=== PATIENT | male | born 1965 | race Caucasian/White ===

== ENCOUNTER 2024-06-29 04:30 | Observation (INO) | payer OTHER, SELFPAY ==
[2024-06-29] VITALS (8 sets, daily range): BP systolic 105–132; BP diastolic 66–82; PULSE 60–70; RESP 15–20; TEMP 36.6–36.9; O2SAT 67–97; BMI 36.5
--- NOTE | 2024-06-29 04:48 | PC.NURSE ---
Patient arrived to floor with EMS via stretcher from [facility] at 04:34.
--- NOTE | 2024-06-29 05:02 | EXP.HP ---
History of Present Illness *Admission Date: 06/29/24 *Reason for visit:: chest pain *History of present illness: This is a 58-year-old male who has a past medical history significant for prediabetes, hypertension, coronary disease, WPW, GERD, and sleep disorder who presents from outlying facility due to a chief complaint of chest pain. According to ER provider prior facility, patient presented to their facility due to substernal chest pain that radiated to his back. Patient was given sublingual nitroglycerin without any response; however, patient was placed on nitroglycerin drip and his chest pain was relieved. Portably, patient had a blood pressure of 192/110 after initiation of nitro drip patient's blood pressure improved to the 1 teens. Moreover, patient's 8 out of 10 substernal chest pain was also relieved. Patient's case was discussed with in-house timber framer helper who recommended transfer. As a result, patient was transitioned to [place] for further management. During my evaluation of patient, patient states that his symptomology started approximately 0 200 awakening him from sleep. Patient states his chest pain was rated 8 out of 10 had radiation to the jaw and left arm, was coupled with some diaphoresis, nausea, vomiting, and some mild shortness of breath. Since initiation of the nitroglycerin, patient's chest pain has been resolved. 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 Moreover, patient states he had a stress test greater than 10 years ago follow-up provocative workup since that timeframe. Patient also denies any prior angiogram. 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 This equates to at least 4 METS of tolerance. Patient did receive a full dose aspirin while at the prior facility. He also received weight-based Lovenox 1 mg/kg of body weight. Currently, he is denying any chest pain, lightheadedness, dizziness, PND, lower extremity swelling, orthopnea, shortness of breath, dyspnea, ripping sensation in chest, nausea, vomiting, or diarrhea. Pertinent values obtained at prior facility included a chest x-ray was negative for any acute cardiopulmonary process, his EKG revealed a normal sinus rhythm, QTc of 4 and 45, right axis shift, and a BUN of 20. PFSH PFSH Disclaimer: The information contained in this section may have been updated after the patient was seen, as this information can be updated by other users. Social History Smoking Status: Former smoker alcohol intake: current alcohol intake frequency: holidays/special occasions only current occupational status: other details: Self-employed Travel in the last 8 weeks: None Review of Systems Review of Systems Review of systems:: pertinent systems reviewed and negative unless documented below Constitutional Constitutional: Reports system reviewed and no additional complaints, except as documented Eyes Eyes: Reports system reviewed and no additional complaints, except as documented ENT Ears, Nose, Mouth, and Throat: Reports system reviewed and no additional complaints, except as documented *Cardiovascular Cardiovascular: Reports chest pain, Reports chest pain at rest, Reports dyspnea and Reports orthopnea *Respiratory Respiratory: Reports system reviewed and no additional complaints, except as documented and Reports dyspnea *Gastrointestinal Gastrointestinal: Reports system reviewed and no additional complaints, except as documented *Genitourinary Genitourinary: Reports system reviewed and no additional complaints, except as documented *Musculoskeletal Musculoskeletal: Reports system reviewed and no additional complaints, except as documented Integumentary/Breasts Skin/Breast: Reports system reviewed and no additional complaints, except as documented *Neurologic Neurologic: Reports system reviewed and no additional complaints, except as documented Psychiatric Psychiatric: Reports system reviewed and no additional complaints, except as documented Endocrine Endocrine: Reports system reviewed and no additional complaints, except as documented Hematologic/Lymphatic Hematologic/Lymphatic: Reports system reviewed and no additional complaints, except as documented Allergic/Immunologic Allergic/Immunologic: Reports system reviewed and no additional complaints, except as documented Meds Home Medications and Allergies New Prescriptions to Start Prescriptions: Allergies Allergy/AdvReac Type Severity Reaction Status Date / Time codeine Allergy Anaphylaxis Verified 06/29/24 05:19 Sulfa (Sulfonamide Allergy Anaphylaxis Verified 06/29/24 05:19 Antibiotics) Exam Constitutional Constitutional: no acute distress, obese and cooperative *Routine HEENT Exam Head: Present normocephalic and atraumatic Eye: Present EOMI, PERRL and normal accommodation ENT: Present mucous membranes moist and dentition normal *Routine Neck Exam Neck: Present supple and full ROM Routine Chest/Breast/Axilla Exam Comments: No tenderness noted doing palpation of the chest wall *Routine Respiratory Exam Respiratory: Present CTA bilaterally, normal respiratory effort, able to speak in complete sentences and symmetric chest movement *Routine Cardiovascular Exam Cardiovascular: Present RRR, Normal S1 and Normal S2 *Routine Abdominal Exam Abdominal: Present soft and normoactive bowel sounds *Routine Rectal Exam Rectal:: deferred *Routine Genitalia Exam Genitalia:: deferred *Routine Extremities Exam Extremities: Present pulses intact and normal capillary refill Routine Back/Spine/Pelvis Exam Back/Spine: Present full ROM *Routine Skin Exam Skin: Present intact, dry and warm *Routine Neurological Exam Neurological: Present alert, oriented X3, CN II-XII intact, moving all extremities, normal tone and normal speech Routine Psychiatric Exam Psychiatric: Present normal affect, normal thought process and cooperative H&P: Result Impressions This is a 58-year-old male with known coronary artery disease without any prior stenting has had cardiac ablation in the past who presents from outlying facility with unstable angina that responded to nitrates. Patient does voice have any provocative workup greater than 10 years ago but no ischemic workup since then. Reportedly, patient has a tolerance of at least 4 METS and is denying any dyspnea with exertion, chest pain with exertion, or shortness of breath Assessment and Plan *Assessment and plan (1) Unstable angina: Status: Acute Category: Medical Code(s): I20.0 - Unstable angina (2) Chest pain: Status: Acute Category: Medical Code(s): R07.9 - Chest pain, unspecified (3) CAD (coronary artery disease): Status: Acute Category: Medical Code(s): I25.10 - Atherosclerotic heart disease of [place] coronary artery without angina pectoris Plan Assessment: Unstable angina -Since patient's chest pain has improved with nitrates and is currently off of nitro drip, will start Nitropaste half inch twice daily we will hold for systolic blood pressure less than 110 -If patient's chest pain returns and it is refractory to sublingual and trans dermal, will restart nitro drip -Will obtain 2D echo -Troponins were normal at prior facility -Will obtain troponin -Patient did receive full-strength aspirin. Will continue 81 mg p.o. daily -Will give 40 mg of enoxaparin subcu daily Chest pain -2D echo when available -Cardiology consult -Will obtain D-dimer -Lipid profile in the a.m. -2D echo from prior facility is unremarkable Coronary artery disease -81 mg of aspirin daily Plan: Admit patient to the stepdown unit Supplemental oxygen to maintain oxygen saturation greater than 94% Saline lock Vital signs every 4 hours Cardiac diet CBC/BMP daily Obtain CMP, CBC, lipid panel, magnesium, and troponin now 5 mg of [place] p.o. every 4 hours PMR if pain 2 mg morphine IV push every 2 hours severe pain 4 mg Zofran IV push to 8 hours. Nausea vomiting/40 mg of Protonix p.o. daily Full code I will discuss this case with attending physician Dr. Garcia and I look forward to more input
[2024-06-29] MEDS: NITROGLYCERIN 1 GM OINTMENT 0.5 GM TD ×3 (05:33→20:49)
--- NOTE | 2024-06-29 08:19 | HMH.PHAINT1 ---
Pharmacy Intervention Comments: MEDICATION RECONCILIATION COMPLETE USING EXTERNAL PHARMACY FILL HISTORY.
[2024-06-29 08:23] LABS: Basophils % 0.5 % (0.1-2.0); Eosinophils # 0.2 K/mm3 (0.0-0.4); Hematocrit 40.6 % (42.0-52.0); Hemoglobin 13.8 g/dL (14.1-18.0); Lymphocytes # 1.9 K/mm3 (0.7-4.5); Lymphocytes % 25.3 % (10-50); Mean Corpuscular Hemoglobin 29.7 pg (27.0-31.2); Mean Corpuscular Volume 87.5 fl (80-94); Mean Platelet Volume 10.7 fl (7.4-10.4); Monocytes # 0.4 K/mm3 (0.1-1.0); Monocytes % 4.8 % (1.7-9.3); Neutrophils % 67.1 % (37.0-80.0); Platelet Count 261 K/mm3 (142-424); Red Blood Count 4.64 M/mm3 (4.60-6.20); Red Cell Distribution Width 12.4 % (11.5-17.5); White Blood Count 7.4 K/mm3 (4.8-10.8)
[2024-06-29 08:26] LABS: D-Dimer 0.55 ug/mL (0.0-0.5)
[2024-06-29 08:49] LABS: Alanine Aminotransferase 30 U/L (12-78); Albumin Level 3.9 g/dl (3.5-5.0); Albumin/Globulin Ratio 1.6 (1.1-1.8); Alkaline Phosphatase 66 U/L (38-126); Anion Gap 10.3 mEq/L (5-15); Aspartate Amino Transferase 28 U/L (17-59); Bilirubin,Total 0.2 mg/dl (0.2-1.3); Blood Urea Nitrogen 20 mg/dl (9-20); Calcium 9.1 mg/dl (8.4-10.2); Carbon Dioxide 23 mmol/L (22.0-30.0); Chloride 109 mmol/L (98-107); Chol/HDL Ratio 4.3 (1-3.5); Cholesterol 141 mg/dl (140-200); Creatinine Clearance Estimated 160 mL/min (50-200); Estimated Glomerular Filt Rate 99 ml/min (>60); GFR (African American) 119 ML/MIN (>60); Globulin 2.4 g/dL (1.3-3.2); Glucose 121 mg/dl (74-100); HDL Cholesterol 33 mg/dl (40-60); Magnesium 2.3 mg/dl (1.6-2.3); Potassium 4.3 mmoL/L (3.5-5.1); Sodium 138 mmol/L (136-145); Total Protein,Serum 6.3 g/dl (6.3-8.2); Triglycerides 104 mg/dl (30-150); VLDL Cholesterol 21 mg/dL (0-40)
[2024-06-29 09:00] LABS: Direct LDL Cholesterol 88.67 mg/dL (100-129)
[2024-06-29 09:12] LABS: Troponin I < 0.01 ng/ml (0.00-0.034)
[2024-06-29] MEDS: ENOXAPARIN 40MG/0.4ML SYRINGE 40 MG SUBCUT (09:20)
[2024-06-29] MEDS: ASPIRIN EC 81MG TABLET 81 MG PO (09:20)
[2024-06-29] MEDS: CITALOPRAM 20MG TABLET 20 MG PO (14:50)
[2024-06-29] MEDS: LORATADINE 10MG TABLET 10 MG PO (14:50)
--- NOTE | 2024-06-29 15:54 | ECG_ITS ---
APPROVED REPORT Exam: Resting ECG HR:58 bpm ECG Measurements Heart Rate 58 AXES LA 183 P 68 QRSd 128 QRS 20 QT 439 T 44 QTc 435 Conclusion SINUS BRADYCARDIA POSSIBLE RIGHT VENTRICULAR CONDUCTION DELAY [RSR (QR) IN V1/V2] BORDERLINE ECG UNCONFIRMED REPORT Electronically signed by : Roman Mejia MD 06/30/2024 10:51:15
--- NOTE | 2024-06-29 16:47 | PC.NURSE ---
pt is resting in bed. alert and oriented x4. eating and drinking well. no complaints of cp or soa. lung sounds clear. abdomen soft/non tender with active bowel sounds. pt stated his last bowel movement was this morning. vss. will continue to monitor.
[2024-06-29] MEDS: ACETAMINOPHEN 325MG TAB 650 MG PO (18:45)
--- NOTE | 2024-06-29 18:56 | EXP.EVENT.NO ---
Patient's chest pain has completely resolved. Currently very stable. Downgraded to MedSur status. Spoke with Dr. Combs, who will plan for LHC on Monday.
[2024-06-29] MEDS: TRAZODONE 50MG TABLET 50 MG PO (20:49)
[2024-06-29] MEDS: PANTOPRAZOLE 40MG TABLET 40 MG PO (20:49)
[2024-06-30] VITALS: BP 115/57; PULSE 54; PULSE 60; RESP 18; TEMP 36.4; O2SAT 95
[2024-06-30 04:00] VITALS: BP 111/57; PULSE 53; PULSE 65; RESP 18; TEMP 36.4; O2SAT 95; BMI 36.1
--- NOTE | 2024-06-30 06:55 | PC.NURSE ---
Pt is currently resting in bed. He is A&OX4 and has tolerated room air. He has denied any chest pain or soa. He has remained bradycardic to normal sinus on tele. No complaints at this time,call light within reach.
[2024-06-30 08:00] VITALS: BP 163/92; PULSE 70; PULSE 77; RESP 20; TEMP 36.5; O2SAT 94
[2024-06-30] MEDS: LORATADINE 10MG TABLET 10 MG PO (08:20)
[2024-06-30] MEDS: ENOXAPARIN 40MG/0.4ML SYRINGE 40 MG SUBCUT (08:20)
[2024-06-30] MEDS: ASPIRIN EC 81MG TABLET 81 MG PO (08:20)
[2024-06-30] MEDS: CITALOPRAM 20MG TABLET 20 MG PO (08:20)
[2024-06-30 09:10] LABS: Basophils % 0.8 % (0.1-2.0); Eosinophils # 0.2 K/mm3 (0.0-0.4); Eosinophils % 4.2 % (0.1-12.0); Hematocrit 42.2 % (42.0-52.0); Hemoglobin 14.3 g/dL (14.1-18.0); Lymphocytes # 1.3 K/mm3 (0.7-4.5); Lymphocytes % 25.4 % (10-50); Mean Corpuscular HGB Conc 33.9 g/dL (31.8-35.4); Mean Corpuscular Hemoglobin 29.4 pg (27.0-31.2); Mean Corpuscular Volume 86.8 fl (80-94); Mean Platelet Volume 10.1 fl (7.4-10.4); Monocytes # 0.2 K/mm3 (0.1-1.0); Monocytes % 4.4 % (1.7-9.3); Neutrophils # 3.4 K/mm3 (1.8-7.8); Platelet Count 234 K/mm3 (142-424); Red Blood Count 4.86 M/mm3 (4.60-6.20); Red Cell Distribution Width 12.3 % (11.5-17.5); White Blood Count 5.2 K/mm3 (4.8-10.8)
[2024-06-30 10:05] LABS: Chloride 107 mmol/L (98-107); Sodium 135 mmol/L (136-145)
[2024-06-30 10:09] LABS: Blood Urea Nitrogen 13 mg/dl (9-20); Calcium 9.1 mg/dl (8.4-10.2); Carbon Dioxide 22 mmol/L (22.0-30.0); Creatinine Clearance Estimated 159 mL/min (50-200); Estimated Glomerular Filt Rate 99 ml/min (>60); GFR (African American) 119 ML/MIN (>60); Glucose 158 mg/dl (74-100)
[2024-06-30 12:00] VITALS: BP 163/90; PULSE 70; PULSE 80; RESP 20; TEMP 36.6; O2SAT 97
--- NOTE | 2024-06-30 15:04 | PC.NURSE ---
PT IS RESTING IN BED VISITING WITH FAMILY. ALERT AND ORIENTED X4. NO COMPLAINTS OF CP OR SOA. PT REFUSED NITRO PASTE THIS MORNING DUE TO HEADACHE. LUNG SOUNDS CLEAR. ABDOMEN SOFT/NON TENDER WITH ACTIVE BOWEL SOUNDS. AMBULATES TO THE BATHROOM. NSR ON TELEMETRY. WILL CONTINUE TO MONITOR.
[2024-06-30 16:00] VITALS: BP 146/87; PULSE 69; PULSE 70; RESP 18; TEMP 36.6; O2SAT 97
--- NOTE | 2024-06-30 17:26 | EXP.PN ---
Subjective *Date: 06/30/24 *Time: 17:26 Interval history: Patient continues to feel very well, no chest pains. Tentatively planning for [facility] tomorrow, patient eager for it. N.p.o. at midnight. Exam Data for Last 24 hours Vital signs and Labs for Last 24 Hours: Temp Pulse Resp BP Pulse Ox O2 Del Method 97.8 F 70 20 163/90 H 97 Room Air 06/30/24 12:00 06/30/24 16:00 06/30/24 12:06/30/24 12:06/30/24 12:00 06/30/24 14:37 Laboratory Results - last 24 hr 06/30/24 08:30: WBC 5.2 D, RBC 4.86, Hgb 14.3, Hct 42.2, MCV 86.8, MCH 29.4, MCHC 33.9, RDW 12.3, Plt Count 234, MPV 10.1, Neut % (Auto) 65.0, Lymph % (Auto) 25.4, Petroleum % (Auto) 4.4, Eos % (Auto) 4.2, Baso % (Auto) 0.8, Neut # (Auto) 3.4, Lymph # (Auto) 1.3, Petroleum # (Auto) 0.2, Eos # (Auto) 0.2, Baso # (Auto) 0.0, Sodium 135 L, Potassium 4.0, Chloride 107, Carbon Dioxide 22, Anion Gap 10.0, BUN 13 D, Creatinine 0.80, Estimated Creat Clear 159, Estimated GFR 99, Est GFR ( Amer) 119, Glucose 158 H, Calcium 9.1 I & O for Last 24 hours: Intake & Output 06/27/24 06/28/24 06/29/24 06/30/24 23:59 23:59 23:59 23:59 Intake Total 1180 / 1330 750 / 750 Output Total 0 / 0 0 / 0 Balance 1180 / 1330 750 / 750 Weight 115.485 kg 114.577 kg Constitutional Constitutional: no acute distress *Routine HEENT Exam Head: Present normocephalic Eye: Present EOMI and PERRL ENT: Present mucous membranes moist *Routine Neck Exam Neck: Present supple; Absent lymphadenopathy *Routine Respiratory Exam Respiratory: Present CTA bilaterally *Routine Cardiovascular Exam Cardiovascular: Present RRR *Routine Abdominal Exam Abdominal: Present soft and normoactive bowel sounds; Absent tenderness *Routine Extremities Exam Extremities: Absent cyanosis, clubbing or edema *Routine Skin Exam Skin: Present warm; Absent rash *Routine Neurological Exam Neurological: Present alert and oriented X3 Assessment and Plan *Assessment and plan (1) Unstable angina: Status: Acute Category: Medical Code(s): I20.0 - Unstable angina (2) Chest pain: Status: Acute Category: Medical Code(s): R07.9 - Chest pain, unspecified (3) CAD (coronary artery disease): Status: Acute Category: Medical Code(s): I25.10 - Atherosclerotic heart disease of [place] coronary artery without angina pectoris Plan Larry Daniel is a 58-year-old male who was transferred from [facility] for unstable angina. #Unstable angina ? Chest pain improved with nitro drip at [facility]. EKG, troponins were unremarkable there and here. ? Weaned off Nitropaste yesterday, currently stable. No chest pains. ? Patient states he has had a LHC many years ago without a stent. He would really like to find out why he is having chest pains. ? Discussed case with Dr. Combs who recommended LHC on Monday. ? Follow-up ECHO. ? Follow-up A1c, lipid panel, TSH. ? Cardiology consulted, pending further recommendations. ? Aspirin, statin. N.p.o. at midnight. Full code DVT prophylaxis: Lovenox 40 mg
[2024-06-30 20:00] VITALS: BP 101/70; PULSE 75; PULSE 85; RESP 18; TEMP 37.2; O2SAT 98
[2024-06-30] MEDS: PANTOPRAZOLE 40MG TABLET 40 MG PO (20:16)
[2024-06-30] MEDS: TRAZODONE 50MG TABLET 50 MG PO (20:16)
[2024-07-01] VITALS (9 sets, daily range): BP systolic 101–158; BP diastolic 50–91; PULSE 64–91; RESP 16–20; TEMP 36.4–37; O2SAT 90–99
--- NOTE | 2024-07-01 05:51 | XR_ITS ---
PROCEDURE INFORMATION: Exam: XR Chest Exam date and time: 07/01/2024 6:07 AM Age: 58 years old Clinical indication: Other: Chf, copd TECHNIQUE: Imaging protocol: Radiologic exam of the chest. Views: 1 view. COMPARISON: No relevant prior studies available. FINDINGS: Lungs: Unremarkable. No consolidation. Pleural spaces: Unremarkable. No pleural effusion. No pneumothorax. Heart/Mediastinum: Unremarkable. No cardiomegaly. Bones/joints: Unremarkable. IMPRESSION: No acute findings.
[2024-07-01 08:01] LABS: Chol/HDL Ratio 4.9 (1-3.5); Cholesterol 153 mg/dl (140-200); HDL Cholesterol 31 mg/dl (40-60); Triglycerides 124 mg/dl (30-150); VLDL Cholesterol 25 mg/dL (0-40)
[2024-07-01] MEDS: CITALOPRAM 20MG TABLET 20 MG PO (08:23)
[2024-07-01] MEDS: METOPROLOL SUCCINATE XL 25MG TABLET 25 MG PO (08:24)
[2024-07-01] MEDS: ENOXAPARIN 40MG/0.4ML SYRINGE 40 MG SUBCUT (08:24)
[2024-07-01] MEDS: LORATADINE 10MG TABLET 10 MG PO (08:24)
[2024-07-01] MEDS: ASPIRIN EC 81MG TABLET 81 MG PO (08:24)
[2024-07-01 08:31] LABS: Thyroid Stimulating Hormone 0.81 uIU/mL (0.465-4.68)
--- NOTE | 2024-07-01 10:09 | IR_ITS ---
APPROVED REPORT Patient Location: Inpatient Video System Repairer: Asher Smith RT (R) PROCEDURES 1. Left heart catheterization 2. Selective coronary arteriography 3. Left ventriculography INDICATION 1. Unstable angina, 2. Abnormal EKG SCAI INDICATION Patient is 58-year-old white male who presented with increasing pressure and tightness in the chest. Typical angina. Progressive. Risk factors for coronary disease. Abnormal EKG. Secondary to this referred directly for left heart catheterization Informed consent was obtained prior to the procedure. COMPLICATIONS NONE Estimated Blood Loss: LESS THAN 10 ML TECHNIQUE One percent lidocaine was used to anesthetize the right radial artery. Radial access was obtained. Gómez's test appropriate for the procedure. Catheter used for the procedure was a Papa catheter. I also used a JL 3.5 catheter. After access was obtained via the Salinger technique radial sheath was placed without difficulty. Intra-arterial cocktail was given to prevent arterial vasospasm. ANGIOGRAPHIC RESULTS The left main artery Angiographically normal The left anterior descending artery Angiographically normal The circumflex artery Moderate in size and angiographically normal The right coronary artery Large and dominant and angiographically normal The JENSEN ventriculogram reveals Normal left ventricular systolic function with an ejection fraction of 60% The left ventricular end-diastolic pressure 14 After procedure radial sheath was removed and radial band placed without difficulty IMPRESSION 1. Normal coronary arteries 2. Normal left ventricular systolic function 3. Normal left ventricular end-diastolic pressure 4. Successful placement of a radial band on the right radial artery PLAN 1. Patient will continue with medical therapy. Look for noncardiac causes of chest pain. Coronaries were normal. Left ventricular systolic function is normal. Follow-up in cardiology clinic in 1 to 2 weeks for further evaluation and treatment Electronically signed by : Edy Short MD 07/01/2024 15:46:11
[2024-07-01 10:38] LABS: Chloride 105 mmol/L (98-107)
[2024-07-01 10:39] LABS: Potassium 4.2 mmoL/L (3.5-5.1); Sodium 138 mmol/L (136-145)
[2024-07-01 10:42] LABS: Anion Gap 13.2 mEq/L (5-15); Blood Urea Nitrogen 16 mg/dl (9-20); Calcium 9.1 mg/dl (8.4-10.2); Carbon Dioxide 24 mmol/L (22.0-30.0); Creatinine Clearance Estimated 159 mL/min (50-200); Estimated Glomerular Filt Rate 99 ml/min (>60); GFR (African American) 119 ML/MIN (>60); Glucose 111 mg/dl (74-100)
[2024-07-01 10:55] LABS: Basophils % 0.6 % (0.1-2.0); Eosinophils # 0.2 K/mm3 (0.0-0.4); Eosinophils % 3.1 % (0.1-12.0); Hematocrit 43.9 % (42.0-52.0); Hemoglobin 14.9 g/dL (14.1-18.0); Lymphocytes # 1.6 K/mm3 (0.7-4.5); Lymphocytes % 25.6 % (10-50); Mean Corpuscular HGB Conc 33.9 g/dL (31.8-35.4); Mean Corpuscular Volume 85.4 fl (80-94); Mean Platelet Volume 10.5 fl (7.4-10.4); Monocytes # 0.4 K/mm3 (0.1-1.0); Monocytes % 6.1 % (1.7-9.3); Neutrophils # 4.1 K/mm3 (1.8-7.8); Neutrophils % 64.4 % (37.0-80.0); Platelet Count 249 K/mm3 (142-424); Red Blood Count 5.14 M/mm3 (4.60-6.20); Red Cell Distribution Width 12.2 % (11.5-17.5); White Blood Count 6.4 K/mm3 (4.8-10.8)
--- NOTE | 2024-07-01 10:58 | P.CONCA_ITS ---
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 Admitted for evaluation of chest pain which is why we are consulted. Patient presented to [facility] emergency department on Monday night due to 8/10 epigastric and substernal chest pressure with radiation to his jaw and left arm associated with diaphoresis nausea vomiting and shortness of breath. Symptoms were relieved with nitroglycerin drip. Dr. Combs was called and advised patient be transferred to this facility for intervention. Patient states today that he had another episode very similar to this around [place] time which required him to cancel his [place] plans. States he has been overall feeling very fatigued since . 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 Saw PCP which is when he was diagnosed with high blood pressure, prediabetes, hypercholesterolemia. He was working on diet and lifestyle changes. Workup reveals normal serial troponin, D-dimer 0.55, EKG shows sinus bradycardia 58 bpm without acute ischemia or ectopy. There is no chest x-ray, echo or CTA on file. [facility] Disclaimer: The information contained in this section may have been updated after the patient was seen, as this information can be updated by other users. Medical History (Updated 07/01/24 @ 11:03 by YOUSIF Vargas) Sleep apnea GERD (gastroesophageal reflux disease) Pre-diabetes WPW (Mnmmv-Lpzpvfeul-Okonr syndrome) Surgical History H/O knee surgery History of cardiac radiofrequency ablation Social History Smoking Status: Former smoker alcohol intake: never current occupational status: employed Travel in the last 8 weeks: None Have you lived/traveled outside US in past 30 days?: No Contact w/someone who lives/traveled outside US past 30 days?: No Exposure to someone with infectious disease in past 14 days?: No Do you have a fever (greater than 100.4 F or 38 C)?: No Have you tested positive for COVID-19: No Exposed to someone with COVID-19 in past 14 days?: No Do you have a sore throat?: No Do you have a cough?: No Do you have any weakness?: No Are you experiencing any nausea/vomitting?: No Do you have any diarrhea?: No Are you experiencing any unusual bleeding?: No Do you have any muscle aches/pain?: No Do you have any abdominal pain?: No Are you experiencing loss of taste or smell?: No Review of Systems Constitutional Constitutional: Reports fatigue and Reports weakness Eyes Eyes: Denies loss of vision ENT Ears, Nose, Mouth, and Throat: Denies hearing loss *Cardiovascular Cardiovascular: Reports chest pain, Reports dyspnea and Reports dyspnea on exertion *Respiratory Respiratory: Denies cough, Reports dyspnea and Reports dyspnea on exertion *Gastrointestinal Gastrointestinal: Denies change in stool character, Reports nausea and Reports vomiting *Genitourinary Genitourinary: Denies difficulty urinating *Musculoskeletal Musculoskeletal: Denies muscle weakness Integumentary/Breasts Skin/Breast: Denies changing lesions *Neurologic Neurologic: Reports system reviewed and no additional complaints, except as documented, Denies loss of vision and Reports weakness Endocrine Endocrine: Reports fatigue Exam Data for Last 24 hours Vital signs and Labs for Last 24 Hours: Temp Pulse Resp BP Pulse Ox O2 Del Method 98.1 F 70 18 138/88 98 Room Air 07/01/24 07:54 07/01/24 08:00 07/01/24 07:54 07/01/24 07:54 07/01/24 07:54 07/01/24 09:00 Laboratory Results - last 24 hr 07/01/24 07:03: WBC 6.4, RBC 5.14, Hgb 14.9, Hct 43.9, MCV 85.4, MCH 29.0, MCHC 33.9, RDW 12.2, Plt Count 249, MPV 10.5 H, Neut % (Auto) 64.4, Lymph % (Auto) 25.6, [place] % (Auto) 6.1, Eos % (Auto) 3.1, Baso % (Auto) 0.6, Neut # (Auto) 4.1, Lymph # (Auto) 1.6, [place] # (Auto) 0.4, Eos # (Auto) 0.2, Baso # (Auto) 0.0, Sodium 138, Potassium 4.2, Chloride 105, Carbon Dioxide 24, Anion Gap 13.2, BUN 16, Creatinine 0.80, Estimated Creat Clear 159, Estimated GFR 99, Est GFR ( Amer) 119, Glucose 111 H D, Hemoglobin A1c 6.0, Calcium 9.1, Triglycerides 124, Cholesterol 153, LDL Cholesterol Direct 94.10 L, VLDL Cholesterol 25, HDL Cholesterol 31 L, Cholesterol/HDL Ratio 4.9 H, TSH 0.81 I & O for Last 24 hours: Intake & Output 06/28/24 06/29/24 06/30/24 07/01/24 23:59 23:59 23:59 23:59 Intake Total 1180 / 1330 750 / 950 200 / 200 Output Total 0 / 0 0 / 0 0 / 0 Balance 1180 / 1330 750 / 950 200 / 200 Weight 254 lb 9.6 oz 252 lb 9.6 oz Constitutional Constitutional: no acute distress and cooperative *Routine HEENT Exam Eye: Present PERRL *Routine Respiratory Exam Respiratory: Present CTA bilaterally; Absent accessory muscle use, wheezes or crackles *Routine Cardiovascular Exam Cardiovascular: Present RRR, Normal S1 and Normal S2; Absent murmur, gallop or rubs *Routine Abdominal Exam Abdominal: Present soft; Absent tenderness *Routine Extremities Exam Extremities: Present pulses intact; Absent cyanosis or edema *Routine Skin Exam Skin: Present intact; Absent erythema or wounds *Routine Neurological Exam Neurological: Present alert and oriented X3 Routine Psychiatric Exam Psychiatric: Present cooperative Meds Home Medications and Allergies Home Medications ?Medication ?Instructions ?Recorded ?Confirmed ?Type citalopram 20 mg tablet 20 mg PO DAILY 06/29/24 06/29/24 History loratadine 10 mg tablet (Claritin) 10 mg PO DAILY 06/29/24 06/29/24 History New Prescriptions to Start Prescriptions: Allergies Allergy/AdvReac Type Severity Reaction Status Date / Time codeine Allergy Anaphylaxis Verified 06/29/24 05:19 Sulfa (Sulfonamide Allergy Anaphylaxis Verified 06/29/24 05:19 Antibiotics) Assessment and Plan *Assessment and plan (1) Unstable angina: Status: Acute Category: Medical Code(s): I20.0 - Unstable angina (2) Hypertension: Status: Acute Category: Medical Code(s): I10 - Essential (primary) hypertension (3) WPW (Rjony-Jrvmqzeya-Bujtd syndrome): Status: Acute Category: Medical Code(s): I45.6 - Pre-excitation syndrome (4) Pre-diabetes: Status: Acute Category: Medical Code(s): R73.03 - Prediabetes (5) GERD (gastroesophageal reflux disease): Status: Acute Category: Medical Code(s): K21.9 - Gastro-esophageal reflux disease without esophagitis Plan Unstable Angina - nml serial trop and EKG but worsening symptoms and CV risk factors - pt agreeable to [facility] this afternoon - risk and benefits discussed - Cont ASA and Lovenox, add statin and Toprol - check CXR and 2D ECHO, consider CTA if other test yield no answers Htn - recently dx - 192/110 on arrival - 130/80s now on Toprol 25 Pre-Dm - lifestyle management - consider OP GLP-1
[2024-07-01] MEDS: HEPARIN 1,000 UNITS/ML 10ML VIAL (CATH LAB) 10000 UNIT IV (15:10)
[2024-07-01] MEDS: NITROGLYCERIN 800MCG/8ML SYR (CATH LAB) 800 MCG IA (15:10)
[2024-07-01] MEDS: LIDOCAINE 1% 10ML MDV 20 ML IJ (15:10)
[2024-07-01] MEDS: diphenhydrAMINE 50MG/ML VIAL 50 MG IV (15:10)
[2024-07-01] MEDS: VERAPAMIL 2.5MG/ML 2ML VIAL 2.5 MG IV (15:10)
[2024-07-01] MEDS: 0.9 % SODIUM CHLORIDE 500 ML 25 ML IV (15:11)
[2024-07-01] MEDS: MIDAZOLAM HCL 1MG/ML 5ML VIAL 1 MG IV (15:11)
[2024-07-01] MEDS: FENTANYL 100MCG/2ML VIAL 50 MCG IV (15:11)
[2024-07-01] MEDS: HEPARIN 1,000 UNITS/500ML NS (CATH LAB) 3000 UNIT IV (15:11)
[2024-07-01] MEDS: IOPAMIDOL-370 (76%);100ML BOTTLE 70 ML IV (16:19)
--- NOTE | 2024-07-01 17:28 | P.DS_ITS ---
General Admission date:: 06/29/24 HPI HPI HPI: This is a 58-year-old male who has a past medical history significant for prediabetes, hypertension, coronary disease, WPW, GERD, and sleep disorder who presents from outlying facility due to a chief complaint of chest pain. According to ER provider prior facility, patient presented to their facility due to substernal chest pain that radiated to his back. Patient was given cm blingual nitroglycerin without any response; however, patient was placed on nitroglycerin drip and his chest pain was relieved. Portably, patient had a blood pressure of 192/110 after initiation of nitro drip patient's blood pressure improved to the 1 teens. Moreover, patient's 8 out of 10 substernal chest pain was also relieved. Patient's case was discussed with in-house lawyer real estate who recommended transfer. As a result, patient was transitioned to [facility] for further management. During my evaluation of patient, patient states that his symptomology started approximately 0 200 awakening him from sleep. Patient states his chest pain was rated 8 out of 10 had radiation to the jaw and left arm, was coupled with some diaphoresis, nausea, vomiting, and some mild shortness of breath. Since initiation of the nitroglycerin, patient's chest pain has been resolved. 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 Moreover, patient states he had a stress test greater than 10 years ago follow-up provocative workup since that timeframe. Patient also denies any prior angiogram. 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 This equates to at least 4 METS of tolerance. Patient did receive a full dose aspirin while at the prior facility. He also received weight-based Lovenox 1 mg/kg of body weight. Currently, he is denying any chest pain, lightheadedness, dizziness, PND, lower extremity swelling, orthopnea, shortness of breath, dyspnea, ripping sensation in chest, nausea, vomiting, or diarrhea. Pertinent values obtained at prior facility included a chest x-ray was negative for any acute cardiopulmonary process, his EKG revealed a normal sinus rhythm, QTc of 4 and 45, right axis shift, and a BUN of 20. Hospital Course Hospital Course Hospital Course: Larry Daniel is a 58-year-old male who was transferred from [facility] for unstable angina. #Chest pain #Suspected GERD ? Chest pain improved with nitro drip at [facility]. EKG, troponins were unremarkable there and here. ? Weaned off Nitropaste yesterday, currently stable. No chest pains. ? Patient states he has had a C many years ago without a stent. He would really like to find out why he is having chest pains. ? Cardiology consulted, s/p C with normal coronary ateries. - Will order outpatient ECHO. ? A1c, lipid panel, TSH unremarkable. - Chest pain may represent GERD, as he was chest pain free during admission after starting Protonix. Discharged with protonix. Will follow-up with cardiology within 1 week. Total time spent on discharge: 32 minutes on chart review, counseling, documentation, and direct care with patient. Exam Data for Last 24 hours Vital signs and Labs for Last 24 Hours: Temp Pulse Resp BP Pulse Ox O2 Del Method 98.6 F 83 16 108/56 L 92 L Room Air 07/01/24 12:00 07/01/24 16:00 07/01/24 16:00 07/01/24 16:00 07/01/24 16:00 07/01/24 16:00 Laboratory Results - last 24 hr 07/01/24 07:03: WBC 6.4, RBC 5.14, Hgb 14.9, Hct 43.9, MCV 85.4, MCH 29.0, MCHC 33.9, RDW 12.2, Plt Count 249, MPV 10.5 H, Neut % (Auto) 64.4, Lymph % (Auto) 25.6, [place] % (Auto) 6.1, Eos % (Auto) 3.1, Baso % (Auto) 0.6, Neut # (Auto) 4.1, Lymph # (Auto) 1.6, [place] # (Auto) 0.4, Eos # (Auto) 0.2, Baso # (Auto) 0.0, Sodium 138, Potassium 4.2, Chloride 105, Carbon Dioxide 24, Anion Gap 13.2, BUN 16, Creatinine 0.80, Estimated Creat Clear 159, Estimated GFR 99, Est GFR ( Amer) 119, Glucose 111 H D, Hemoglobin A1c 6.0, Calcium 9.1, Triglycerides 124, Cholesterol 153, LDL Cholesterol Direct 94.10 L, VLDL Cholesterol 25, HDL Cholesterol 31 L, Cholesterol/HDL Ratio 4.9 H, TSH 0.81 I & O for Last 24 hours: Intake & Output 06/28/24 06/29/24 06/30/24 07/01/24 23:59 23:59 23:59 23:59 Intake Total 1180 / 1330 750 / 950 200 / 200 Output Total 0 / 0 0 / 0 0 / 0 Balance 1180 / 1330 750 / 950 200 / 200 Weight 115.485 kg 114.577 kg Constitutional Constitutional: no acute distress and obese *Routine HEENT Exam Head: Present normocephalic Eye: Present EOMI and PERRL ENT: Present mucous membranes moist *Routine Neck Exam Neck: Present supple; Absent lymphadenopathy *Routine Respiratory Exam Respiratory: Present CTA bilaterally *Routine Cardiovascular Exam Cardiovascular: Present RRR *Routine Abdominal Exam Abdominal: Present soft and normoactive bowel sounds; Absent tenderness *Routine Extremities Exam Extremities: Absent cyanosis, clubbing or edema *Routine Skin Exam Skin: Present warm; Absent rash *Routine Neurological Exam Neurological: Present alert and oriented X3 Results Data Completed and Pending Labs on day of discharge: Labs from last 24 hours 07/01/24 07:03 WBC 6.4 RBC 5.14 Hgb 14.9 Hct 43.9 MCV 85.4 MCH 29.0 MCHC 33.9 RDW 12.2 Plt Count 249 MPV 10.5 H Neut % (Auto) 64.4 Lymph % (Auto) 25.6 [place] % (Auto) 6.1 Eos % (Auto) 3.1 Baso % (Auto) 0.6 Neut # (Auto) 4.1 Lymph # (Auto) 1.6 [place] # (Auto) 0.4 Eos # (Auto) 0.2 Baso # (Auto) 0.0 Sodium 138 Potassium 4.2 Chloride 105 Carbon Dioxide 24 Anion Gap 13.2 BUN 16 Creatinine 0.80 Estimated Creat Clear 159 Estimated GFR 99 Est GFR ( Amer) 119 Glucose 111 H D Hemoglobin A1c 6.0 Calcium 9.1 Triglycerides 124 Cholesterol 153 LDL Cholesterol Direct 94.10 L VLDL Cholesterol 25 HDL Cholesterol 31 L Cholesterol/HDL Ratio 4.9 H TSH 0.81 DS: Diagnosis Discharge Diagnosis (1) Unstable angina: Status: Acute Code(s): I20.0 - Unstable angina (2) Hypertension: Status: Acute Code(s): I10 - Essential (primary) hypertension (3) WPW (Bdwgz-Wllzzemzl-Mrcwz syndrome): Status: Acute Code(s): I45.6 - Pre-excitation syndrome (4) Pre-diabetes: Status: Acute Code(s): R73.03 - Prediabetes (5) GERD (gastroesophageal reflux disease): Status: Acute Code(s): K21.9 - Gastro-esophageal reflux disease without esophagitis Meds Home Medications and Allergies Home Medications ?Medication ?Instructions ?Recorded ?Confirmed ?Type citalopram 20 mg tablet 20 mg PO DAILY 06/29/24 07/08/24 History loratadine 10 mg tablet (Claritin) 10 mg PO DAILY 06/29/24 07/08/24 History pantoprazole 40 mg tablet,delayed 40 mg PO HS 30 days #30 tabs 07/01/24 07/08/24 Rx release trazodone 50 mg tablet 50 mg PO HS PRN sleep 30 days #30 07/01/24 07/08/24 Rx tabs metoprolol succinate 50 mg 50 mg PO DAILY #90 tabs 07/08/24 07/08/24 Rx tablet,extended release 24 hr New Prescriptions to Start Prescriptions: charletteazole Tyler Garcia trazodone Tyler Garcia Allergies Allergy/AdvReac Type Severity Reaction Status Date / Time codeine Allergy Anaphylaxis Verified 07/08/24 11:21 Sulfa (Sulfonamide Allergy Anaphylaxis Verified 07/08/24 11:21 Antibiotics) Discharge Plan Disposition Patient Disposition: Home, Self-Care Condition: Fair Follow up Plan Follow up with: Aidan Sampson PA [Physician Housekeeping Attendant] - 07/08/24 11:30 am Pool Raoms [Primary Care Provider] - 07/08/24 9:30 am Prescriptions/Medication Reconciliation: New trazodone 50 mg Tablet 50 mg PO HS PRN (Reason: sleep) 30 Days Qty: 30 0RF pantoprazole 40 mg Tablet,Delayed Release (Dr/Ec) 40 mg PO HS 30 Days Qty: 30 0RF Continued loratadine [Claritin] 10 mg Tablet 10 mg PO DAILY citalopram 20 mg tablet 20 mg PO DAILY No Action metoprolol succinate 50 mg tablet extended release 24 hr 50 mg PO DAILY Qty: 90 3RF Problem Reconciliation Problems Reviewed?: Yes Patient Discharge Instructions Patient Instructions: DI for Chest Pain Print Language: Lebanese Providers Primary Care Provider: Pool Ramos Admit Provider: Tyler Garcia Attending Provider: Tyler Garcia
--- NOTE | 2024-07-01 18:59 | PC.NURSE ---
aox4, radial band still in place at time of writing. not requiring o2 support. tolerated diet well.
--- NOTE | 2024-07-01 20:24 | PC.NURSE ---
Pt discharged off floor, Pt took him home @20:21
--- NOTE | 2024-07-02 10:03 | SW/DCPLANNER ---
Spoke with patient on the phone. Patient stated that he is doing very well. Patient stated that the nurse went over his upcoming appointments and that he is aware of them. Patient stated that he hasnt gotten out or recieved a text that his medicine is ready. Patient stated that he is fixing to go and pick them up. Patient stated that his care here at [facility] was exceptional and it was his first visit and he will be coming back. Patient stated that he has no concern or questions at this time. Yael Meneses
== END 2024-07-01 20:21 | disposition home or self-care (01) ==
PROVIDERS: Internal Medicine Cardiovascular Disease; Nurse Practitioner Family; Admitting Provider Student in an Organized Health Care Education/Training Program; PCP Family Medicine; Visit Provider Student in an Organized Health Care Education/Training Program
DX: I25.110 Atherosclerotic heart disease of native coronary artery with unstable angina pectoris (principal); I45.6 Pre-excitation syndrome; R73.03 Prediabetes; K21.9 Gastro-esophageal reflux disease without esophagitis; I10 Essential (primary) hypertension; E66.9 Obesity, unspecified; Z68.36 Body mass index [BMI] 36.0-36.9, adult; Z71.3 Dietary counseling and surveillance; Z87.891 Personal history of nicotine dependence; Z79.899 Other long term (current) drug therapy; Z79.82 Long term (current) use of aspirin
CPT/HCPCS: 93452; 36415; 71045; 80048; 80053; 80061; 83036; 83735; 84443; 84484; 85025; 85378; 93005; 99152; C1725; C1769; G0378; J1200; J1644; J1650; J2250; J3010; Q9967

== ENCOUNTER 2024-07-05 09:05 | Outpatient (CLI) | payer OTHER, SELFPAY ==
--- NOTE | 2024-07-05 09:12 | CA_ITS ---
APPROVED REPORT EXAM: Comprehensive 2D, Doppler, and color-flow Echocardiogram Rubber Engraver: Sabiha Toribio CRT Ht: 5 ft 10 in Wt: 254lbs BSA: 2.31 BP: 163/90 mmHg Indications: Chest Pain, Shortness of Breath, Diabetes, Palpitations, CAD, Hyperlipidemia, Hypertension/HDD, cath 06/29/24 normal coronaries, CABG, WPW, Ablation x2 2D Dimensions LA Volume 53.00 mL LA Volume Index 22.40 mL/m2 (M/F) 16-34 M-Mode Dimensions RVDd 3.06 cm (0.9-2.6) LA Diam 3.74 cm (1.9-4.0) LVDd 5.60 cm (3.5-5.7) LVDs 3.90 cm (3.5-5.7) IVSd 1.99 cm (0.6-1.1) PWd 0.87 cm (0.6-1.1) EF (Teich) 57.10% FS 30.40% EDV (Teich) 153.70 mL ESV (Teich) 65.90 mL LV Diastology E Decel Time 207 (160-240 msec) E/A Ratio 1.26 MED A' 10.20 cm/s LAT A' 7.90 cm/s Aortic Valve AI PHT 585.00 ms AO Peak GR. 5.40 mmHg Mitral Valve MV E Max Harman. 104.0 (40-130 cm/s) MV A Velocity 82.0 (40-130 cm/s) E/A Ratio 1.26 MV PHT 61.0 ms Pulmonary Valve PV Peak Velocity 172.0 (50-150 cm/s) Tricuspid Valve TR P. Velocity 248.00 cm/s RAP Estimate 10.00 mmHg RVSP 34.60 mmHg Left Ventricle The left ventricle is normal size. The left ventricular systolic function is normal. The left ventricular ejection fraction is within the normal range. There is increased LV wall thickness. There is normal LV segmental wall motion. The left ventricular diastolic function is normal. LVEF is 60%. Right Ventricle The right ventricle is mildly dilated. The right ventricular systolic function is normal. Atria The left atrium is mildly dilated. The right atrium size is normal. There is no Doppler evidence of interatrial shunt. Aortic Valve The aortic valve is mildly thickened. There is no aortic valvular stenosis. Mild aortic regurgitation. Mitral Valve The mitral valve is mildly thickened. No evidence of mitral valve stenosis. Mild mitral regurgitation. Tricuspid Valve The tricuspid valve leaflets are thin and pliable. Mild tricuspid regurgitation. RVSP is 20-25 mmHg. Trace pulmonic regurgitation. Pulmonic Valve The pulmonary valve is normal in structure. Great Vessels The aortic root is normal in size. The ascending aorta is borderline dilated, measuring 3.7 cm in diameter. IVC is normal in size and collapses >50% with inspiration. Pericardium There is no pericardial effusion. Other Information Study Quality: Fair Conclusion Normal biventricular systolic function. Mild RV dilation. Mild LA dilation. Mild AI, mild MR, mild TR. Borderline dilated ascending aorta, measuring 3.7 cm in diameter. Electronically signed by : Kasandra Aparicio MD 07/08/2024 00:21:21
== END 2024-07-05 23:59 | disposition home or self-care (01) ==
LOC: RT 09:07
PROVIDERS: PCP Family Medicine; Visit Provider Student in an Organized Health Care Education/Training Program
DX: I51.7 Cardiomegaly (principal); R07.9 Chest pain, unspecified
CPT/HCPCS: 93306

== ENCOUNTER 2024-09-02 10:16 | Day surgery (SDC) | payer OTHER, SELFPAY ==
--- NOTE | 2024-08-26 14:36 | SUR.PREOP ---
1436: Message left on VM with arrival time and call back instructions.
[2024-09-02 11:05] VITALS: BMI 36.4
[2024-09-02 11:10] VITALS: BP 128/77; PULSE 63; RESP 18; TEMP 36.6; O2SAT 97
[2024-09-02] MEDS: LACTATED RINGERS 1000ML 1,000 ML 50 ML IV (11:19)
--- NOTE | 2024-09-02 11:41 | P.PNANES_ITS ---
[facility] Disclaimer: The information contained in this section may have been updated after the patient was seen, as this information can be updated by other users. Medical History Sleep apnea GERD (gastroesophageal reflux disease) Pre-diabetes WPW (Bbutq-Sftmystvc-Rcdal syndrome) Surgical History History of cardiac cath H/O knee surgery History of cardiac radiofrequency ablation Social History Smoking Status: Former smoker alcohol intake: never substance use type: denies use current occupational status: employed Travel in the last 8 weeks: None [facility] Anesthesia Checklist Patient Identification Patient Identification: Arm Band and Family Structural Data Admitted From: Home Planned Operative Procedure/s: EGD Consent for Planned Operative Procedure(s) Verified: Yes Verified Documents: Surgical Consent NPO Status Verified Time NPO: 00:00 Additional verifications Patient : No Anesthesia Reactions: No Hx Blood Transfusions: No Blood Transfusion Reaction: No Cephalosporin Allergy: No Previous Colonoscopy: Yes Airway Assessment Mallampati Score:: Class II C-Spine Mobility Assessed: Yes TMJ Mobility Assessed: Yes Dentition: Good Dentition Neurological Assessment Level of Consciousness: Awake, Alert, Appropriate and Follows Commands Hx Seizures: No Numbness or tingling in extremities: No Anesthesia Plan Anesthesia Risk discussed: Yes ASA Class: II Anesthesia Type: MAC Preoperative Comments Pre-Operative Comments: WPW. Prediabetic.
--- NOTE | 2024-09-02 11:45 | EXP.HP ---
History of Present Illness *Admission Date: 09/02/24 *Reason for visit:: GERD/noncardiac chest pain/dyspepsia and bloating *History of present illness: Mr. Daniel is a 59-year-old gentleman who is here for diagnostic EGD secondary to noncardiac chest pain, reflux and dyspepsia. The examination is deemed medically necessary for diagnostic EGD. The patient has been seen, interviewed and examined prior to the procedure by both myself and the anesthesia provider. [facility] Disclaimer: The information contained in this section may have been updated after the patient was seen, as this information can be updated by other users. Medical History Sleep apnea GERD (gastroesophageal reflux disease) Pre-diabetes WPW (Hnbzd-Lirwioiqh-Mugio syndrome) Surgical History History of cardiac cath H/O knee surgery History of cardiac radiofrequency ablation Social History (Updated 09/02/24 @ 11:42 by Jose Winters CRNA) Smoking Status: Former smoker alcohol intake: never substance use type: denies use current occupational status: employed Travel in the last 8 weeks: None Have you lived/traveled outside [place] in past 30 days?: No Contact w/someone who lives/traveled outside US past 30 days?: No Exposure to someone with infectious disease in past 14 days?: No Do you have a fever (greater than 100.4 F or 38 C)?: No Have you tested positive for COVID-19: No Exposed to someone with COVID-19 in past 14 days?: No Do you have a sore throat?: No Do you have a cough?: No Do you have any weakness?: No Do you have any diarrhea?: No Are you experiencing any unusual bleeding?: No Do you have any muscle aches/pain?: No Do you have any abdominal pain?: No Are you experiencing loss of taste or smell?: No Other Medical History Have you received the Flu Vaccine for this season: No Have you received the Pneumonia Vaccine: No Review of Systems Review of Systems Review of systems (narrative): Negative *Cardiovascular Comments: Negative *Gastrointestinal Comments: Negative *Genitourinary Comments: Negative *Musculoskeletal Comments: Negative *Neurologic Comments: Negative Meds Home Medications and Allergies Home Medications ?Medication ?Instructions ?Recorded ?Confirmed ?Type citalopram 20 mg tablet 20 mg PO DAILY 06/29/24 09/02/24 History loratadine 10 mg tablet (Claritin) 10 mg PO DAILY 06/29/24 09/02/24 History metoprolol succinate 50 mg 50 mg PO DAILY #90 tabs 08/01/24 09/02/24 Rx tablet,extended release 24 hr losartan 25 mg tablet 25 mg PO DAILY #90 tabs 08/08/24 09/02/24 Rx New Prescriptions to Start Prescriptions: Allergies Allergy/AdvReac Type Severity Reaction Status Date / Time codeine Allergy Anaphylaxis Verified 09/02/24 11:07 Sulfa (Sulfonamide Allergy Anaphylaxis Verified 09/02/24 11:07 Antibiotics) Exam Data for Last 24 hours Vital signs and Labs for Last 24 Hours: Temp Pulse Resp BP Pulse Ox O2 Del Method 97.8 F 63 18 128/77 97 Room Air 09/02/24 11:10 09/02/24 11:10 09/02/24 11:10 09/02/24 11:10 09/02/24 11:10 09/02/24 11:10 I & O for Last 24 hours: Intake & Output 08/30/24 08/31/24 09/01/24 09/02/24 23:59 23:59 23:59 23:59 Weight 254 lb *Routine HEENT Exam Head: Present normocephalic Eye: Present EOMI and PERRL ENT: Present mucous membranes moist *Routine Neck Exam Neck: Present supple *Routine Respiratory Exam Respiratory: Present CTA bilaterally *Routine Cardiovascular Exam Cardiovascular: Present RRR *Routine Abdominal Exam Abdominal: Present soft and normoactive bowel sounds; Absent tenderness *Routine Rectal Exam Rectal:: deferred *Routine Genitalia Exam Genitalia:: deferred *Routine Extremities Exam Extremities: Absent cyanosis, clubbing or edema *Routine Skin Exam Skin: Present warm; Absent rash *Routine Neurological Exam Neurological: Present alert and oriented X3 Assessment and Plan *Assessment and plan (1) Non-cardiac chest pain: Status: Acute Category: Medical Code(s): R07.89 - Other chest pain (2) GERD (gastroesophageal reflux disease): Status: Acute Category: Medical Code(s): K21.9 - Gastro-esophageal reflux disease without esophagitis (3) Bloating: Status: Acute Category: Medical Code(s): R14.0 - Abdominal distension (gaseous) (4) Functional dyspepsia: Status: Acute Category: Medical Code(s): K30 - Functional dyspepsia Plan A/P: 1. Noncardiac chest pain with GERD, epigastric pain, dyspepsia and bloating is the preprocedural diagnosis. The patient will be anesthetized/sedated using MAC sedation. The patient has been seen and examined. Cardiac and lung assessment prior to the examination is stable. Proceed with planned EGD
--- NOTE | 2024-09-02 11:46 | P.PCN_ITS ---
[facility] Procedure Note Date: 09/02/24 Time: 12:04 Procedure Note:: Upper Endoscopy Procedure Report: Esophagogastroduodenoscopy with cold biopsies Endoscopost: Rodrigue Baires II, MD Referring Physician: Pool Ramos MD Date of Procedure: September 02, 2024 Equipment: Olympus GIF 190 standard upper endoscope Sedation: MAC sedation Indications: Mr. Daniel is a 59-year-old gentleman who has had 2 emergency department visits for chest pain. He was transferred to [place] and had cardiac evaluation which was negative for coronary artery disease. He does have a history of Ehdtq-Tkkahkagd-Jyjzw. He was placed on pantoprazole. He has had improvement with this. He does report bloating, belching and some fullness. He also has some dyspepsia with epigastric abdominal discomfort. He reports no nausea or vomiting. He reports no dysphagia. He did have a colonoscopy 3 to 4 years ago at [facility] (Dr. Wallis) and had a couple of benign polyps removed. He reports regular bowel function. Procedure: Prior to the procedure, a history and physical exam was performed, and patient's medications and allergies were reviewed. The risks, benefits and alternatives of the sedation and procedure were discussed with the patient. All questions were answered and informed consent was obtained. The patient was brought to the procedure room. Patient identification and proposed procedure were verified by the physician and the nurse. The patient was placed in a left lateral decubitus position and the scope was passed under direct vision. Throughout the procedure, the patient's blood pressure, pulse, and oxygen saturations were monitored continuously. The upper GI endoscopy was accomplished without difficulty. The patient tolerated the procedure well. Findings: The scope was passed directly into the upper esophagus and advanced to the third portion of the duodenum. The post bulbar duodenum and duodenal bulb were normal with normal mucosa and conniventes. The scope was withdrawn through a normal duodenal bulb and pylorus into the stomach. There was mild linear reactive gastropathy of the antrum and body. The remainder of the fundus of the stomach was normal. Upon retroflexion there was no hiatal hernia. Biopsies were taken from the antrum. The scope was then withdrawn into the esophagus. There was no evidence of reflux esophagitis or Clarke's. There were tertiary contractions and evidence of moderate esophageal dysmotility. The remainder of the esophageal mucosa was normal. Impression: 1. Nonerosive GERD with moderate esophageal dysmotility 2. Mild linear reactive gastropathy Plan: The patient does have functional dyspepsia and functional GERD with probable esophageal dyskinesia as the etiology of his noncardiac chest pain/esophageal chest pain. We will discuss additional treatment options. I will follow-up the biopsies.
[2024-09-02 11:56] VITALS: O2SAT 99
[2024-09-02 12:15] VITALS: BP 126/76; PULSE 90; RESP 16; TEMP 36.6; O2SAT 93
[2024-09-02 12:25] VITALS: BP 115/87; PULSE 88; RESP 17; O2SAT 96
[2024-09-02 12:35] VITALS: BP 102/69; PULSE 96; RESP 17; O2SAT 98
[2024-09-02 12:45] VITALS: BP 98/57; PULSE 79; RESP 17; O2SAT 97
== END 2024-09-02 13:04 | disposition home or self-care (01) ==
PROVIDERS: PCP Family Medicine; Visit Provider Internal Medicine Gastroenterology
PROC: 0DJ08ZZ Inspection of Upper Intestinal Tract, Via Natural or Artificial Opening Endoscopic (ICD-10-PCS; CPT 43239; principal; 2024-09-02 12:00)
DX: K21.9 Gastro-esophageal reflux disease without esophagitis (principal); K22.4 Dyskinesia of esophagus; K31.9 Disease of stomach and duodenum, unspecified; R07.89 Other chest pain; R14.0 Abdominal distension (gaseous); K30 Functional dyspepsia
CPT/HCPCS: 43239; J7120